=== PATIENT | female | born 1930 | race Caucasian/White ===

== ENCOUNTER 2016-12-13 10:13 | Outpatient (CLI) | payer MEDICARE ==
[2016-12-13 20:17] LABS: BASOPHILS # (AUTO) 0.1 10^3/uL (0.0-0.1); BASOPHILS % (AUTO) 1.2 %; EOSINOPHILS # (AUTO) 0.1 10^3/uL (0.0-0.7); EOSINOPHILS % (AUTO) 1.3 %; HCT - HEMATOCRIT 39.1 % (37.0-47.0); HGB - HEMOGLOBIN 13.1 g/dL (12.0-16.0); LYMPHOCYTES # (AUTO) 2.9 10^3/uL (1.5-3.5); LYMPHOCYTES % (AUTO) 38.8 %; MEAN CORPUSCULAR HEMOGLOBIN 30.2 pg (27.0-31.0); MEAN CORPUSCULAR HGB CONC 33.4 g/dL (32.0-36.0); MEAN CORPUSCULAR VOLUME 90.4 fL (81.0-99.0); MEAN PLATELET VOLUME 8.2 fL (7.9-10.8); MONOCYTES # (AUTO) 0.6 10^3/uL (0.0-1.0); MONOCYTES % (AUTO) 8.2 %; NEUTROPHILS # (AUTO) 3.8 10^3/uL (1.5-6.6); NEUTROPHILS % (AUTO) 50.5 %; RED BLOOD COUNT 4.32 10^6/uL (4.20-5.40); RED CELL DISTRIBUTION WIDTH 13.5 % (12.0-15.0); UNCORRECTED WHITE BLOOD COUNT 7.5 x10^3/uL; WHITE BLOOD COUNT 7.5 x10^3/uL (4.8-10.8)
[2016-12-13 20:38] LABS: BILIRUBIN,TOTAL 0.4 mg/dL (0.2-1.0); BUN - BLOOD UREA NITROGEN 21 mg/dL (6-20); CALCIUM 9.3 mg/dL (8.5-10.3); CARBON DIOXIDE - CO2 26 mmol/L (21-32); CHLORIDE 103 mmol/L (101-111); CHOL/HDL RATIO 3.1 (<4.4); CHOLESTEROL 135 mg/dL; CREATININE 0.7 mg/dL (0.4-1.0); GFR - MDRD 79 (>89); GLUCOSE 163 mg/dL (70-100); HDL CHOLESTEROL 43 mg/dL; LDL/HDL RATIO 1.3 (<4.4); SODIUM 138 mmol/L (135-145); TOTAL PROTEIN 7.7 g/dL (6.7-8.2); TRIGLYCERIDES 181 mg/dL; VLDL CHOLESTEROL 36 mg/dL
== END 2016-12-13 10:14 | disposition home or self-care (01) ==
LOC: LAB.WCP 10:13
PROVIDERS: ATTEND Family Medicine
DX: I10 Essential (primary) hypertension (principal); E78.5 Hyperlipidemia, unspecified
CPT/HCPCS: 36415; 80053; 80061; 85025

== ENCOUNTER 2017-05-30 05:53 | Emergency (ER) | payer MEDICARE ==
[2017-05-30] MEDS ORDERED: LIDOCAINE 1%-EPI 1:100000 20 ML MDV SUBQ STA (06:06)
--- NOTE | 2017-05-30 06:36 | ED Physician Documentation ---
History of Present Illness - Stated complaint Stated Complaint: FACIAL INJURY - Chief complaint Chief Complaint: Laceration - History obtained from History obtained from: Family (report of an unwitnessed fall last PM with bleeding and laceration above the right eye. pt was laying next to her bed. pt has hx of dementia and lives in a dementia facility. 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 No: Atraumatic (pt with a 3cm laceration to the medical aspect above the right eye and a 2 cm laceration to the lateral aspect above the right eye. ) - Neck Neck: No bony TTP - Cardiac Cardiac: RRR, No murmur - Respiratory Respiratory: No respiratory distress, Clear bilaterally - Derm Derm: Other (laceration above the right eye) - Extremities Extremities: Other (moves all 4 equally on command. ) - Neuro Neuro: Other (pt does not know year ot location or situation. this is baseline per the family who is at bedside. ) - Psych Psych: Normal mood Results - Vitals Vitals: Vital Signs - 24 hr 05/30/17 06:04 Temperature 36.1 C L Heart Rate 82 Respiratory 20 Rate Blood Pressure 145/75 H O2 Saturation 97 Oxygen O2 Source Room air - Rads (name of study) head CT Radiology: Final report received (no acute pathology ), EMP read contemporaneously cervical spine CT Radiology: Final report received (no acute pathology ), EMP read contemporaneously facial CT Radiology: Final report received (no acute pathology ), EMP read contemporaneously Procedures - Laceration (location) medial eyebrow Wound type: Linear Neurovascular status: Sensory intact Anesthesia: Lidocaine 1% with epi, Volume - enter cc (2) Wound Preparation: Irrigated copiously NS, Wound explored Skin layer closure: Nylon, Size #-0 - enter number (5), Sutures - enter # (2) Other: Patient tolerated well, No complications, Neurovascular intact, Tetanus UTD Complexity: Simple lateral right eyebrow Wound type: Linear Neurovascular status: Sensory intact, Motor intact Anesthesia: Lidocaine 1% with epi Wound Preparation: Irrigated copiously NS, Wound explored Skin layer closure: Nylon, Size #-0 - enter number (5), Sutures - enter # (1) Other: Patient tolerated well, No complications, Dressing applied Complexity: Simple PD MEDICAL DECISION MAKING - ED course Complexity details: reviewed results, considered differential, d/w patient, d/w family ED course: no fractures on CT scans. lacerations closed as above. gave daughter care instructions and return precautions. pt is at baseline mental status per daughter. Departure - Departure Disposition: 01 Home, Self Care Clinical Impression: Fall, Nose abrasion, Laceration Condition: Good Instructions: ED Laceration All, ED Abrasion Follow-Up: Ashwin Olivares DO [Primary Care Provider] - Comments: The stitches will need to be removed in 7 days. keep the area clean and dried and covered especially at night. ice the right eye. expect bruising and swelling to the right eye lid/brow. Return to the ER for any new or worsening symptoms.
--- NOTE | 2017-05-30 06:56 | CT Preliminary Report ---
Exam: CT HEAD W/O IMPRESSION: Generalized age-related cortical atrophic changes without evidence of acute intracranial abnormality. [facility] SITE ID: [id number]
--- NOTE | 2017-05-30 06:59 | CT Preliminary Report ---
Exam: CT CERVICAL SPINE W/O IMPRESSION: No fractures identified in the cervical spine. [facility] SITE ID: [id number]
--- NOTE | 2017-05-30 06:59 | CT Report ---
EXAM: CT HEAD EXAM DATE: 05/30/2017 06:40 AM. CLINICAL HISTORY: Fall with head injury. COMPARISON: Head CT 02/09/2016. TECHNIQUE: Multiaxial CT images were obtained from the foramen magnum to the vertex. Reformats: Coron al. IV contrast: None. In accordance with CT protocol optimization, one or more of the following dose reduction techniques w ere utilized for this exam: automated exposure control, adjustment of mA and/or KV based on patient s ize, or use of iterative reconstructive technique. FINDINGS: Parenchyma: No intraparenchymal hemorrhage. No evidence of mass, midline shift, or CT findings of acu te infarction. Gupta-white differentiation is distinct. Diffuse chronic microangiopathic white matter changes are evident. Extraaxial Spaces: Normal for age. No subdural or epidural collections identified. Ventricles: The ventricles and cortical sulci are enlarged, consistent with age-related tissue loss. Sinuses and orbits: Imaged paranasal sinuses, orbits, and mastoids show no significant abnormality. Bones: No evidence of fracture or calvarial defect. Other: No change since the prior study. IMPRESSION: Generalized age-related cortical atrophic changes without evidence of acute intracranial abnormality. [facility] Referring Provider Line: [phone] SITE ID: [id number]
--- NOTE | 2017-05-30 07:01 | CT Preliminary Report ---
Exam: CT FACIAL BONES W/O IMPRESSION: No facial bone fracture is identified. [facility] SITE ID: [id number]
--- NOTE | 2017-05-30 07:01 | CT Report ---
EXAM: CT CERVICAL SPINE WITHOUT CONTRAST DATE: 05/30/2017 06:41 AM. HISTORY: Fall with head injury. COMPARISONS: None. TECHNIQUE: Thin-section axial images were acquired of the cervical spine without contrast. Post-proce ssing: Coronal and sagittal reformats. Other: None. In accordance with CT protocol optimization, one or more of the following dose reduction techniques w ere utilized for this exam: automated exposure control, adjustment of mA and/or KV based on patient s ize, or use of iterative reconstructive technique. FINDINGS: Alignment: No scoliosis or spondylolisthesis. Bones: No fracture or bone lesion. Prominent diffuse osteopenia. Interspace Levels/Facets: Disk space narrowing at C4-C5, C5-C6 and C6-C7. Bilateral foraminal stenosis at C4-C5. Musculature: Normal. No fatty atrophy. Other: The paravertebral and prevertebral soft tissues are unremarkable. The lung apices are clear. IMPRESSION: No fractures identified in the cervical spine. [facility] Referring Provider Line: [phone] SITE ID: [id number]
--- NOTE | 2017-05-30 07:04 | CT Report ---
EXAM: CT MAXILLOFACIAL WITHOUT CONTRAST EXAM DATE: 05/30/2017 06:42 AM. CLINICAL HISTORY: Fall with facial laceration. COMPARISONS: None. TECHNIQUE: Thin-section axial images were acquired of the face without contrast. Post-processing: Cor onal and sagittal reformats. Other: None. In accordance with CT protocol optimization, one or more of the following dose reduction techniques w ere utilized for this exam: automated exposure control, adjustment of mA and/or KV based on patient s ize, or use of iterative reconstructive technique. FINDINGS: Soft Tissue: No mass or fluid collection.The infratemporal fossa and parapharyngeal spaces are unrema rkable. Orbits: Symmetric and unremarkable. Bones: No fracture or bone lesion. Temporomandibular Joints: The temporomandibular joints are symmetric and normally located. Right-side d degenerative change. Sinuses: No significant abnormality. Other: Soft tissue injury over the bridge of the nose. IMPRESSION: No facial bone fracture is identified. [facility] Referring Provider Line: [phone] SITE ID: [id number]
[2017-05-30 07:39] VITALS: BP 138/76
[2017-05-30] MEDS ORDERED: BACITRACIN OINT TOP ONE (07:53)
== END 2017-05-30 07:55 | disposition home or self-care (01) ==
LOC: ED 05:53
DX: S01.111A Laceration without foreign body of right eyelid and periocular area, initial encounter (principal); W19.XXXA Unspecified fall, initial encounter; G30.9 Alzheimer's disease, unspecified; F02.80 Dementia in other diseases classified elsewhere, unspecified severity, without behavioral disturbance, psychotic disturbance, mood disturbance, and anxiety
CPT/HCPCS: 12013; 70450; 70486; 72125; 99283; A9270

== ENCOUNTER 2017-06-06 10:15 | Outpatient (CLI) | payer MEDICARE ==
[2017-06-06 13:46] LABS: BASOPHILS % (AUTO) 0.7 %; EOSINOPHILS # (AUTO) 0.2 10^3/uL (0.0-0.7); EOSINOPHILS % (AUTO) 2.5 %; HGB - HEMOGLOBIN 12.5 g/dL (12.0-16.0); LYMPHOCYTES # (AUTO) 2.4 10^3/uL (1.5-3.5); LYMPHOCYTES % (AUTO) 38.9 %; MEAN CORPUSCULAR HEMOGLOBIN 29.6 pg (27.0-31.0); MEAN CORPUSCULAR VOLUME 89.8 fL (81.0-99.0); MEAN PLATELET VOLUME 8.2 fL (7.9-10.8); MONOCYTES # (AUTO) 0.6 10^3/uL (0.0-1.0); MONOCYTES % (AUTO) 8.9 %; NEUTROPHILS # (AUTO) 3.1 10^3/uL (1.5-6.6); PLT - PLATELET COUNT 291 10^3/uL (130-450); RED BLOOD COUNT 4.22 10^6/uL (4.20-5.40); RED CELL DISTRIBUTION WIDTH 14.2 % (12.0-15.0); WHITE BLOOD COUNT 6.3 x10^3/uL (4.8-10.8)
[2017-06-06 14:31] LABS: ALBUMIN 3.6 g/dL (3.2-5.5); ALBUMIN/GLOBULIN RATIO 0.9 (1.0-2.2); ALKALINE PHOSPHATASE 77 IU/L (42-121); ALT ALANINE AMINOTRANSFERASE 17 IU/L (10-60); AST ASPARTATE AMINOTRANSFERASE 21 IU/L (10-42); BILIRUBIN,TOTAL 0.4 mg/dL (0.2-1.0); BUN - BLOOD UREA NITROGEN 16 mg/dL (6-20); CALCIUM 9.2 mg/dL (8.5-10.3); CARBON DIOXIDE - CO2 27 mmol/L (21-32); CHLORIDE 105 mmol/L (101-111); CHOL/HDL RATIO 3.1 (<4.4); CHOLESTEROL 138 mg/dL; CREATININE 0.7 mg/dL (0.4-1.0); GFR - MDRD 79 (>89); GLUCOSE 150 mg/dL (70-100); HDL CHOLESTEROL 45 mg/dL; LDL CHOLESTEROL,CALCULATED 65 mg/dL; LDL/HDL RATIO 1.4 (<4.4); SODIUM 141 mmol/L (135-145); TOTAL PROTEIN 7.5 g/dL (6.7-8.2); VLDL CHOLESTEROL 28 mg/dL
[2017-06-06 16:37] LABS: HB2 TOTAL 13.2 g/dL; HEMOGLOBIN A1C 0.76 g/dL; HEMOGLOBIN A1C % 7.4 % (4.6-6.2)
== END 2017-06-06 10:16 | disposition home or self-care (01) ==
LOC: LAB.WCP 10:15
PROVIDERS: ATTEND Family Medicine
DX: I10 Essential (primary) hypertension (principal); E74.39 Other disorders of intestinal carbohydrate absorption
CPT/HCPCS: 36415; 80053; 80061; 83036; 85025

== ENCOUNTER 2017-08-08 17:49 | Emergency (ER) | payer MEDICARE ==
[2017-08-08 18:10] VITALS: BP 129/75
[2017-08-08] MEDS ORDERED: OXYMETAZOLINE NASAL SPRAY NAS STA (18:57)
--- NOTE | 2017-08-08 18:57 | ED Physician Documentation ---
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 - Present Medications Home Medications: Ambulatory Orders Medication Instructions Recorded Confirmed ALPRAZolam [Alprazolam] 0.25 mg PO 08/08/17 Acetaminophen 500 mg PO 08/08/17 Aspirin 81 mg PO 08/08/17 Cholecalciferol (Vitamin D3) 1,000 unit PO 08/08/17 [Vitamin D3] FLUoxetine [PROzac] 10 mg PO DAILY 08/08/17 08/08/17 Melatonin 1 mg PO 08/08/17 Omeprazole 20 mg PO 08/08/17 Polyethylene Glycol 3350 [Miralax] 17 gm PO DAILY 08/08/17 08/08/17 Rosuvastatin Calcium [Crestor] 10 mg PO 08/08/17 Sennosides/Docusate Sodium [Stool 1 each PO 08/08/17 Softener-Stimulant Lax] Verapamil [Calan] 80 mg PO BID 08/08/17 08/08/17 - Allergies Allergies/Adverse Reactions: Allergies Allergy/AdvReac Type Severity Reaction Status Date / Time No Known Drug Allergies Allergy Verified 05/30/17 06:08 - Social History Does the pt smoke?: No Smoking Status: Never smoker Does the pt drink ETOH?: No - Immunizations Immunizations are current?: Yes PD ED PE NORMAL - Vitals Vital signs reviewed: Yes - General General: No acute distress, Well developed/nourished - HEENT HEENT: Other (There is a knuckle of exposed vein on the right septum with sequela of recent bleeding but no active bleeding on my exam.) - Neck Neck: Supple, no meningeal sign, No bony TTP Results - Vitals Vitals: Vital Signs - 24 hr 08/08/17 18:06 Temperature 36.7 C Heart Rate 95 Respiratory 16 Rate Blood Pressure 129/75 O2 Saturation 95 Oxygen O2 Source Room air Procedures - Epistaxis Site: Right, Anterior Preparation: Lidocaine Treatment: Silver Nitrate Other: Observed - no bleeding, Pt tolerated well Departure - Departure Disposition: Home, Self Care Clinical Impression: Epistaxis Condition: Good Record reviewed to determine appropriate education?: Yes Instructions: ED Nosebleed
== END 2017-08-08 19:08 | disposition home or self-care (01) ==
LOC: ED 17:49
DX: R04.0 Epistaxis (principal); G30.9 Alzheimer's disease, unspecified; F02.80 Dementia in other diseases classified elsewhere, unspecified severity, without behavioral disturbance, psychotic disturbance, mood disturbance, and anxiety; Z79.82 Long term (current) use of aspirin
CPT/HCPCS: 30901; 99282; 99283; A9270

== ENCOUNTER 2017-09-01 20:41 | Outpatient (CLI) | payer MEDICARE | END 2017-09-01 20:42 | disposition critical access hospital (66) | LOC: EMS 20:41 | PROVIDERS: ATTEND Surgery | DX: R04.0 Epistaxis (principal) | CPT/HCPCS: A0425; A0428 ==

== ENCOUNTER 2017-09-01 20:57 | Emergency (ER) | payer MEDICARE, OTHER ==
--- NOTE | 2017-09-01 21:11 | ED Physician Documentation ---
PD HPI HEENT - Stated complaint Stated Complaint: EPISTAXIS - Chief complaint Chief Complaint: Heent - History obtained from History obtained from: Family (daughter, due to dementia), EMS - History of Present Illness Timing - onset: Other (She was seen by me a little under month ago for right- sided nosebleed. She was cauterized. Doing pretty well since with maybe a little nosebleed or 2 but had a larger one tonight. 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 - Present Medications Home Medications: Ambulatory Orders Medication Instructions Recorded Confirmed ALPRAZolam [Alprazolam] 0.25 mg PO 08/08/17 Acetaminophen 500 mg PO 08/08/17 Aspirin 81 mg PO 08/08/17 Cholecalciferol (Vitamin D3) 1,000 unit PO 08/08/17 [Vitamin D3] FLUoxetine [PROzac] 10 mg PO DAILY 08/08/17 08/08/17 Melatonin 1 mg PO 08/08/17 Omeprazole 20 mg PO 08/08/17 Polyethylene Glycol 3350 [Miralax] 17 gm PO DAILY 08/08/17 08/08/17 Rosuvastatin Calcium [Crestor] 10 mg PO 08/08/17 Sennosides/Docusate Sodium [Stool 1 each PO 08/08/17 Softener-Stimulant Lax] Verapamil HCl [Verapamil ER] 1 tab PO DAILY 09/01/17 09/01/17 - Allergies Allergies/Adverse Reactions: Allergies Allergy/AdvReac Type Severity Reaction Status Date / Time No Known Drug Allergies Allergy Verified 09/01/17 21:02 - Living Situation Living Situation: reports: Other ([facility] facility) - Social History Does the pt smoke?: No Smoking Status: Never smoker Does the pt drink ETOH?: No Does the pt have substance abuse?: No - Immunizations Immunizations are current?: Yes - POLST Patient has POLST: Yes PD ED PE NORMAL - Vitals Vital signs reviewed: Yes - General General: Other (She is alert and cooperative but disoriented) - HEENT HEENT: Other (No hemotympanum, she has a knuckle Of vein that is hemostatic on the right Kiesselbach's plexus, and the exact same spot that I cauterized a month ago.) - Neck Neck: Supple, no meningeal sign, No bony TTP Results - Vitals Vitals: Vital Signs - 24 hr 09/01/17 09/01/17 20:59 22:01 Temperature 36.1 C L Heart Rate 83 79 Respiratory 18 16 Rate Blood Pressure 126/66 139/72 H O2 Saturation 96 99 Oxygen O2 Source Room air Procedures - Epistaxis Site: Right, Anterior Preparation: Lidocaine Treatment: Silver Nitrate Other: Observed - no bleeding, Pt tolerated well Departure - Departure Disposition: 01 Home, Self Care Clinical Impression: Epistaxis Condition: Good Record reviewed to determine appropriate education?: Yes Instructions: ED Nosebleed Discharge Date/Time: 09/01/17 21:55
[2017-09-01] MEDS ORDERED: LIDOCAINE 1%-EPI 1:100000 20 ML MDV SUBQ STA (21:16)
[2017-09-01 22:03] VITALS: BP 139/72
== END 2017-09-01 21:55 | disposition home or self-care (01) ==
LOC: EDUNIT# → ED 20:57
DX: R04.0 Epistaxis (principal); I10 Essential (primary) hypertension; G30.9 Alzheimer's disease, unspecified; F02.80 Dementia in other diseases classified elsewhere, unspecified severity, without behavioral disturbance, psychotic disturbance, mood disturbance, and anxiety; K21.9 Gastro-esophageal reflux disease without esophagitis
CPT/HCPCS: 30901; 99283